=== PATIENT | male | born 1985 | race Caucasian/White ===

== ENCOUNTER 2023-01-23 08:00 | Outpatient (CLI) | payer OTHER ==
--- NOTE | 2023-01-24 11:13 | XRAY Report ---
PROCEDURE: Finger(s) LT INDICATIONS: LEFT PINKY FINGER INJURY TECHNIQUE: AP hand, 2 views of the fifth finger(s) acquired. COMPARISON: None. FINDINGS: Bones: No fractures or dislocations. No suspicious bony lesions. Fifth DIP held in flexion Soft tissues: No suspicious soft tissue calcifications or masses. IMPRESSION: No acute bony abnormality. Reviewed by: Horace Olmos MD on 01/24/2023 10:12 AM CATERINA Approved by: Horace Olmos MD on 01/24/2023 10:12 AM AKSANTOS Station ID: [id number]
== END 2023-01-23 23:59 | disposition home or self-care (01) ==
LOC: DI.S 08:00
PROVIDERS: ATTEND Registered Nurse
DX: S66.397A Other injury of extensor muscle, fascia and tendon of left little finger at wrist and hand level, initial encounter (principal)

== ENCOUNTER 2023-06-02 19:13 | Outpatient (CLI) | payer OTHER | END 2023-06-02 19:14 | disposition critical access hospital (66) | LOC: EMS 19:13 | DX: R40.20 Unspecified coma (principal); R06.81 Apnea, not elsewhere classified; R06.89 Other abnormalities of breathing; F10.90 Alcohol use, unspecified, uncomplicated | CPT/HCPCS: A0425; A0427 ==

== ENCOUNTER 2023-06-02 20:00 | Inpatient (IN) | payer OTHER ==
[2023-06-02] MEDS ORDERED: PROPOFOL 1000 MG/100 ML 1,000 MG/100 ML BOTTLE IV STA (20:01)
[2023-06-02] MEDS ORDERED: VECURONIUM 10 MG VIAL IVP STA (20:01)
[2023-06-02] MEDS ORDERED: SODIUM CHLORIDE 0.9% 1,000 ML IV STA ×3 (20:01→20:02)
--- NOTE | 2023-06-02 20:07 | ED Physician Documentation ---
History of Present Illness - Stated complaint Stated Complaint: AMS/UNCONSCIOUS - History obtained from History obtained from: Patient - History of Present Illness Pain level max: 0 Pain level now: 0 - Additonal information Additional information: Patient is a 37-year-old male with a longstanding history of alcoholism. He was admitted at the end of February for alcohol use with respiratory arrest. Today his parents state that the found him drinking heavily, he went unresponsive with EMS and stopped breathing again. He was intubated with EMS. Brought in to the emergency department. He has received Versed from EMS as well as fentanyl. The patient was intubated for 24 hours on his last admission. He was discharged to an alcohol rehab facility. Reportedly has been clean for 28 days. No other drug use is known. Reportedly patient is on no medications. Patient unable to give any history. All history from EMS. Review of Systems Unable to obtain: Intubated PD PAST MEDICAL HISTORY - Past Medical History Past Medical History: No - Past Surgical History Past Surgical History: No - Present Medications Home Medications: Ambulatory Orders Medication Instructions Recorded Confirmed Magnesium Oxide [Mag Ox] 400 mg PO DAILYWM 14 Days #14 tab 03/29/23 Thiamine [Vitamin B-1] 100 mg PO DAILY 30 Days #30 tab 03/29/23 chlordiazePOXIDE [Librium] 10 mg PO BID #6 cap 03/29/23 - Allergies Allergies/Adverse Reactions: Allergies Allergy/AdvReac Type Severity Reaction Status Date / Time No Known Drug Allergies Allergy Verified 06/02/23 20:52 - Social History Smoking Status: Former smoker PD ED PE NORMAL - Vitals Vital signs reviewed: Yes - General General: Other (intubated, unresponsive) - HEENT HEENT: PERRL, Moist mucous membranes - Neck Neck: Supple, no meningeal sign - Cardiac Cardiac: RRR, Strong equal pulses - Respiratory Respiratory: No respiratory distress, Clear bilaterally - Abdomen Abdomen: Soft, Non distended - Derm Derm: Warm and dry - Extremities Extremities: No edema - Neuro Neuro: Other (intubated) Results - Vitals Vitals: Vital Signs - 24 hr 06/02/23 06/02/23 06/02/23 20:00 20:18 20:20 Temperature 35.3 C L 36 C L Heart Rate 75 79 75 Respiratory 14 11 L Rate Blood Pressure 133/101 H 120/94 H O2 Saturation 100 100 06/02/23 06/02/23 06/02/23 20:48 21:00 21:15 Temperature 36.1 C L 36.1 C L 36 C L Heart Rate 106 H 80 79 Respiratory 18 20 24 Rate Blood Pressure 122/85 H 116/81 H 107/78 O2 Saturation 100 100 100 Oxygen O2 Source Mechanical ventilator - Labs Labs: Laboratory Tests 06/02/23 06/02/23 06/02/23 20:00 20:06 20:06 WBC 7.7 RBC 5.13 Hgb 15.1 Hct 46.9 MCV 91.4 MCH 29.4 MCHC 32.2 RDW 13.2 Plt Count 232 MPV 8.4 Neut # (Auto) 3.1 Lymph # (Auto) 3.3 Hunt # (Auto) 0.5 Eos # (Auto) 0.7 Baso # (Auto) 0.1 Absolute Nucleated RBC 0.00 Nucleated RBC % 0.0 Bld Gas Analysis Time Sample Site ABG pH ABG pCO2 ABG pO2 ABG HCO3 ABG Total CO2 ABG O2 Saturation ABG Base Excess Tristan Test Respiration Rate O2 Delivery Device Vent Mode Tidal Volume PEEP Sodium 139 Potassium 3.8 Chloride 103 Carbon Dioxide 29 Anion Gap 7.0 BUN 11 Creatinine 0.9 Estimated GFR (MDRD) 95 Glucose 104 Calcium 9.3 Magnesium 2.1 Total Bilirubin 0.3 AST 25 ALT 17 Alkaline Phosphatase 60 Total Protein 7.1 Albumin 4.5 Globulin 2.6 Albumin/Globulin Ratio 1.7 Lipase 57 TSH 3.96 Urine Color STRAW Urine Clarity CLEAR Urine pH 6.0 Ur Specific [place] <=1.005 Urine Protein NEGATIVE Urine Glucose (UA) NEGATIVE Urine Ketones NEGATIVE Urine Occult Blood NEGATIVE Urine Nitrite NEGATIVE Urine Bilirubin NEGATIVE Urine Urobilinogen 0.2 (NORMAL) Ur Leukocyte Esterase NEGATIVE Ur Microscopic Review NOT INDICATED Urine Culture Comments NOT INDICATED Salicylates < 1.5 Urine Opiates Screen NEGATIVE Ur Oxycodone Screen NEGATIVE Urine Methadone Screen NEGATIVE Ur Propoxyphene Screen NEGATIVE Acetaminophen < 0.1 Ur Barbiturates Screen NEGATIVE Ur Tricyclics Screen NEGATIVE Ur Phencyclidine Scrn NEGATIVE Ur Amphetamine Screen NEGATIVE U Methamphetamines Scrn NEGATIVE U Benzodiazepines Scrn NEGATIVE Urine Cocaine Screen NEGATIVE U Cannabinoids Screen NEGATIVE Ethyl Alcohol 484.8 06/02/23 20:20 WBC RBC Hgb Hct MCV MCH MCHC RDW Plt Count MPV Neut # (Auto) Lymph # (Auto) Hunt # (Auto) Eos # (Auto) Baso # (Auto) Absolute Nucleated RBC Nucleated RBC % Bld Gas Analysis Time 2030 Sample Site LEFT RADIAL ABG pH 7.29 L ABG pCO2 51 H ABG pO2 227 H* ABG HCO3 23.7 ABG Total CO2 25.2 ABG O2 Saturation 99 H ABG Base Excess -3.4 L Tristan Test POSITIVE Respiration Rate 16 O2 Delivery Device VENTILATOR Vent Mode ASSIST/CONTROL Tidal Volume 500 PEEP 5 Sodium Potassium Chloride Carbon Dioxide Anion Gap BUN Creatinine Estimated GFR (MDRD) Glucose Calcium Magnesium Total Bilirubin AST ALT Alkaline Phosphatase Total Protein Albumin Globulin Albumin/Globulin Ratio Lipase TSH Urine Color Urine Clarity Urine pH Ur Specific [place] Urine Protein Urine Glucose (UA) Urine Ketones Urine Occult Blood Urine Nitrite Urine Bilirubin Urine Urobilinogen Ur Leukocyte Esterase Ur Microscopic Review Urine Culture Comments Salicylates Urine Opiates Screen Ur Oxycodone Screen Urine Methadone Screen Ur Propoxyphene Screen Acetaminophen Ur Barbiturates Screen Ur Tricyclics Screen Ur Phencyclidine Scrn Ur Amphetamine Screen U Methamphetamines Scrn U Benzodiazepines Scrn Urine Cocaine Screen U Cannabinoids Screen Ethyl Alcohol - Rads (name of study) cxr Relevant Findings:: Final report received, See rad report PD Medical Decision Making - ED course Complexity details: reviewed results, re-evaluated patient, considered differential, d/w coding consultant ED course: 37-year-old male with a history of alcoholism and respiratory failure apparently was drinking heavily tonight, became unconscious and had respiratory failure. Was intubated with EMS. Patient was placed on a propofol drip here. We will admit the patient to the ICU for further care. Patient is hemodynamically stable. A Khan catheter was placed. A enteric tube was placed. Similar presentation to when he was admitted back at the end of February. Discussed the case with the hospitalist, who accepts. This document was made in part using voice recognition software. While efforts are made to proofread this document, sound alike and grammatical errors may occur. IMPRESSION: No acute radiographic abnormality on this single view radiograph. ET tube terminates in the mid trachea. Consider advancement of the enteric tube (side port is at the gastroesophageal junction) - Critical Care Time(min): 35 Time Includes: See progress note Data interpretation: See progress note Procedures included in critical care time: See progress note Procedures excluded from critical care time: See progress note Departure - Departure Disposition: 66 [facility] DC/Xfer Clinical Impression: Respiratory failure Qualifiers: Chronicity: acute Respiratory failure complication: unspecified whether with hypoxia or hypercapnia Qualified Code(s): J96.00 - Acute respiratory failure, unspecified whether with hypoxia or hypercapnia Alcohol intoxication Qualifiers: Complication of substance-induced condition: uncomplicated Qualified Code(s): F10.920 - Alcohol use, unspecified with intoxication, uncomplicated Condition: Stable Discharge Date/Time: 06/02/23 22:05
[2023-06-02 20:12] LABS: MUDS CUTOFF CONCENTRATIONS CUTOFF CONC BELOW:
[2023-06-02 20:12] LABS: BASOPHILS # (AUTO) 0.1 10^3/uL (0.0-0.1); BASOPHILS % (AUTO) 0.9 %; EOSINOPHILS # (AUTO) 0.7 10^3/uL (0.0-0.7); EOSINOPHILS % (AUTO) 9.4 %; HCT - HEMATOCRIT 46.9 % (42.0-52.0); HGB - HEMOGLOBIN 15.1 g/dL (14.0-18.0); LYMPHOCYTES # (AUTO) 3.3 10^3/uL (1.5-3.5); LYMPHOCYTES % (AUTO) 42.4 %; MEAN CORPUSCULAR HEMOGLOBIN 29.4 pg (27.0-31.0); MEAN CORPUSCULAR HGB CONC 32.2 g/dL (32.0-36.0); MEAN CORPUSCULAR VOLUME 91.4 fL (80.0-94.0); MEAN PLATELET VOLUME 8.4 fL (7.4-11.4); MONOCYTES # (AUTO) 0.5 10^3/uL (0.0-1.0); NEUTROPHILS # (AUTO) 3.1 10^3/uL (1.5-6.6); PLT - PLATELET COUNT 232 10^3/uL (130-450); RED BLOOD COUNT 5.13 10^6/uL (4.70-6.10); RED CELL DISTRIBUTION WIDTH 13.2 % (12.0-15.0); WHITE BLOOD COUNT 7.7 x10^3/uL (4.8-10.8)
[2023-06-02 20:13] LABS: BILIRUBIN,URINE NEGATIVE (NEGATIVE); GLUCOSE, URINE (UA) NEGATIVE (NEGATIVE); KETONES,URINE (UA) NEGATIVE (NEGATIVE); LEUKOCYTE ESTERASE, URINE NEGATIVE (NEGATIVE); NITRITE,URINE NEGATIVE (NEGATIVE); OCCULT BLOOD,URINE NEGATIVE (NEGATIVE); PROTEIN,URINE NEGATIVE (NEGATIVE); UROBILINOGEN,URINE 0.2 (NORMAL) E.U./dL (NORMAL)
[2023-06-02 20:16] LABS: CLARITY,URINE CLEAR (CLEAR)
--- NOTE | 2023-06-02 20:24 | XRAY Report ---
PROCEDURE: Chest 1 View X-Ray INDICATIONS: s/p intubation TECHNIQUE: One view of the chest was acquired. COMPARISON: None. FINDINGS: Surgical changes and devices: ET tube terminates in the mid trachea. Enteric tube terminates below t he diaphragm, with side-port at the gastroesophageal junction, consider further advancement. Lungs and pleura: No dense consolidation. No pleural effusion. Mediastinum: Normal heart size Bones and chest wall: No suspicious bony lesions. Overlying soft tissues appear unremarkable. IMPRESSION: No acute radiographic abnormality on this single view radiograph. ET tube terminates in the mid trachea. Consider advancement of the enteric tube (side port is at the gastroesophageal junction) Reviewed by: Seymour Metcalf MD on 06/02/2023 8:22 PM PST Approved by: Seymour Metcalf MD on 06/02/2023 8:22 PM PST Station ID: [id number]
[2023-06-02 20:26] LABS: AMPHETAMINE SCREEN,URINE NEGATIVE (NEGATIVE); BARBITURATE SCREEN,UR NEGATIVE (NEGATIVE); BENZODIAZEPINES SCREEN, URINE NEGATIVE (NEGATIVE); COCAINE SCREEN URINE NEGATIVE (NEGATIVE); METHADONE SCREEN, URINE NEGATIVE (NEGATIVE); METHAMPHETAMINES SCREEN, URINE NEGATIVE (NEGATIVE); OPIATE SCREEN, URINE NEGATIVE (NEGATIVE); OXYCODONE SCREEN, URINE NEGATIVE (NEGATIVE); PROPOXYPHENE SCREEN, URINE NEGATIVE (NEGATIVE); THC CANNABINOID SCREEN, URINE NEGATIVE (NEGATIVE); TRICYCLIC ANTIDEPRESSANT,URINE NEGATIVE (NEGATIVE)
[2023-06-02 20:28] LABS: ALBUMIN 4.5 g/dL (3.2-5.5); ALBUMIN/GLOBULIN RATIO 1.7 (1.0-2.2); ALKALINE PHOSPHATASE 60 IU/L (42-121); ALT ALANINE AMINOTRANSFERASE 17 IU/L (10-60); AST ASPARTATE AMINOTRANSFERASE 25 IU/L (10-42); BILIRUBIN,TOTAL 0.3 mg/dL (0.2-1.0); BUN - BLOOD UREA NITROGEN 11 mg/dL (6-20); CALCIUM 9.3 mg/dL (8.5-10.3); CARBON DIOXIDE - CO2 29 mmol/L (21-32); CHLORIDE 103 mmol/L (101-111); CREATININE 0.9 mg/dL (0.6-1.3); ETOH - ETHANOL 484.8 mg/dL; GFR - MDRD 95 (>89); GLUCOSE 104 mg/dL (74-104); LIPASE 57 U/L (11-82); MAGNESIUM 2.1 mg/dL (1.7-2.3); POTASSIUM 3.8 mmol/L (3.5-4.5); SODIUM 139 mmol/L (135-145); TOTAL PROTEIN 7.1 g/dL (6.4-8.9)
[2023-06-02 20:29] LABS: ACETAMINOPHEN < 0.1 ug/mL; SALICYLATE < 1.5 mg/dL
[2023-06-02 20:34] LABS: ABG PCO2 51 mmHg (34-45); ABG PH 7.29 (7.35-7.45)
[2023-06-02 20:35] LABS: ABG BASE EXCESS -3.4 mmol/L (-2.0-3.0); ABG HCO3 23.7 mmol/L (22.0-26.0); ABG MODE OF VENTILATION ASSIST/CONTROL; ABG OXYGEN SATURATION 99 % (94-98); ABG RESPIRATORY RATE 16 b/min; ABG TCO2 25.2 MMOL/L (21.0-29.0); ALLEN TEST POSITIVE
[2023-06-02 20:36] LABS: ABG PO2 227 mmHg (80-100)
[2023-06-02 20:42] LABS: THYROID STIMULATING HORMONE 3.96 uIU/mL (0.34-5.60)
[2023-06-02] MEDS ORDERED: ONDANSETRON 4 MG/2 ML VIAL IVP PRN (21:17)
[2023-06-02] MEDS ORDERED: SODIUM CHLORIDE FLUSH 0.9% 10 ML SYRINGE IVP PRN (21:17)
[2023-06-02] MEDS ORDERED: LORazepam 2 MG/ML VIAL IVP PRN (21:21)
--- NOTE | 2023-06-02 21:27 | HISTORY & PHYSICAL EXAMINATION ---
Chief Complaint - Chief Complaint Chief Complaint: AMS History of Present Illness - History of Present Illness HPI Comment/Other: Patient is a 37-year-old male with a longstanding history of alcoholism. He was admitted at the end of February for alcohol use with respiratory arrest. Today his parents state that the found him drinking heavily, he went unresponsive with EMS and stopped breathing again. He was intubated with EMS. Brought in to the emergency department. He has received Versed from EMS as well as fentanyl. The patient was intubated for 24 hours on his last admission. He was discharged to an alcohol rehab facility. Reportedly has been clean for 28 days. No other drug use is known. Reportedly patient is on no medications. Pt is on ventilator and propofol Labs showed alcohol level > 400 Pt is admitted due to acute respiratory failure and alcohol intoxication Meds/Allgy - Home Medications Home Medications: Ambulatory Orders Medication Instructions Recorded Confirmed Magnesium Oxide [Mag Ox] 400 mg PO DAILYWM 14 Days #14 tab 03/29/23 Thiamine [Vitamin B-1] 100 mg PO DAILY 30 Days #30 tab 03/29/23 chlordiazePOXIDE [Librium] 10 mg PO BID #6 cap 03/29/23 - Allergies Allergies/Adverse Reactions: Allergies Allergy/AdvReac Type Severity Reaction Status Date / Time No Known Drug Allergies Allergy Verified 06/02/23 20:52 Review of Systems - Other Findings Other Findings: Unable to obtain as patient is sedated, on ventilator Exam - Vital Signs Vital Signs: Vital Signs x48h Temp Pulse Resp BP Pulse Ox 06/02/23 21:15 36 C L 79 24 107/78 100 06/02/23 21:00 36.1 C L 80 20 116/81 H 100 06/02/23 20:48 36.1 C L 106 H 18 122/85 H 100 06/02/23 20:20 75 06/02/23 20:18 36 C L 79 11 L 120/94 H 100 06/02/23 20:00 35.3 C L 75 14 133/101 H 100 - Physical Exam General Appearance: positive: Other (on ventilator) Respiratory: positive: Breath sounds nml Cardiovascular: positive: Regular rate & rhythm Abdomen: positive: Nml bowel sounds Skin: positive: No rash Extremities: positive: No pedal edema Neurologic/Psychiatric: positive: Other (SEDATED) Conclusion/Plan - Lab Results Fish Bones: 06/02/23 20:06 06/02/23 20:06 - Other Other Results/Comments: A: Acute hypoxic respiratory failure Alcohol intoxication AMS Acute Encephalopthy Plan; Admit in ICU Pt is on ventilator cont propofol Start alcohol withdrawl protocol Ativan iv prn start thiamine 100 iv daily Folic acid 1 mg iv daily Supportive care DVT prophylaxic: SCD GI prophy : Pepcid iv Full code Pt is admitted inpatient as more than 2 midnight stay is expected
[2023-06-03] MEDS: PROPOFOL 1000 MG/100 ML 1,000 MG/100 ML BOTTLE IV SCH ×2 (02:51→08:22)
--- NOTE | 2023-06-03 03:50 | PROVIDER PROGRESS NOTE ---
Net Developer Consultant Note - Net Developer Consultant Note Net Developer Consultant Note: RN paged to request BUE wrist restraint for patient sedated and intubated in the ICU. patient attempting to remove ET tube and as risk of self harm. verbal redirection failed. Patient seen. agree with RN that restraints is for patient safety. BUE wrist restraints x 12 hour - day team to renew during day time if restraint is seem necessary Marium Menjivar DO Internal Medicine Sound
[2023-06-03] MEDS ORDERED: fentaNYL 2,500 MCG in SODIUM CHLORIDE 0.9% 200 ML IV SCH (04:00)
[2023-06-03] MEDS: SODIUM CHLORIDE 0.9% 1,000 ML IV SCH ×4 (04:22→22:51)
[2023-06-03] MEDS: SODIUM CHLORIDE FLUSH 0.9% 10 ML SYRINGE IVP SCH ×4 (04:22→23:39)
[2023-06-03 04:51] LABS: BASOPHILS % (AUTO) 0.5 %; EOSINOPHILS # (AUTO) 0.5 10^3/uL (0.0-0.7); EOSINOPHILS % (AUTO) 6.2 %; HCT - HEMATOCRIT 41.5 % (42.0-52.0); HGB - HEMOGLOBIN 13.3 g/dL (14.0-18.0); LYMPHOCYTES # (AUTO) 3.3 10^3/uL (1.5-3.5); LYMPHOCYTES % (AUTO) 45.3 %; MEAN CORPUSCULAR HEMOGLOBIN 29.4 pg (27.0-31.0); MEAN CORPUSCULAR VOLUME 91.6 fL (80.0-94.0); MEAN PLATELET VOLUME 8.7 fL (7.4-11.4); MONOCYTES # (AUTO) 0.3 10^3/uL (0.0-1.0); MONOCYTES % (AUTO) 3.7 %; NEUTROPHILS # (AUTO) 3.3 10^3/uL (1.5-6.6); PLT - PLATELET COUNT 205 10^3/uL (130-450); RED BLOOD COUNT 4.53 10^6/uL (4.70-6.10); RED CELL DISTRIBUTION WIDTH 13.4 % (12.0-15.0); WHITE BLOOD COUNT 7.4 x10^3/uL (4.8-10.8)
[2023-06-03 04:55] LABS: CALCIUM, IONIZED 1.05 mmol/L (1.15-1.33); VBG PH 7.447 (7.31-7.41)
[2023-06-03 05:08] LABS: CALCIUM 8.6 mg/dL (8.5-10.3); CREATININE 0.8 mg/dL (0.6-1.3); MAGNESIUM 1.8 mg/dL (1.7-2.3); PHOSPHORUS 3.8 mg/dL (2.5-5.0); POTASSIUM 3.8 mmol/L (3.5-4.5)
[2023-06-03] MEDS ORDERED: CALCIUM GLUC 1,000MG/50ML-NACL 1,000 MG/50 ML BAG IV ONE (05:11)
[2023-06-03] MEDS ORDERED: MAGNESIUM SULFATE 2 GRAM 2 GM/50 ML BAG IV ONE ×2 (05:11→19:01)
[2023-06-03] MEDS: POTASSIUM CHLOR 10 MEQ/100 ML 10 MEQ/100 ML BAG IV SCH ×2 (05:35→06:36)
[2023-06-03 08:17] LABS: ABG BASE EXCESS 1.4 mmol/L (-2.0-3.0); ABG HCO3 25.3 mmol/L (22.0-26.0); ABG OXYGEN SATURATION 98 % (94-98); ABG PCO2 38 mmHg (34-45); ABG PH 7.45 (7.35-7.45); ABG PO2 115 mmHg (80-100); ABG TCO2 26.4 MMOL/L (21.0-29.0); ALLEN TEST POSITIVE
[2023-06-03 08:18] LABS: ABG MODE OF VENTILATION ASSIST/CONTROL; ABG RESPIRATORY RATE 14 b/min
[2023-06-03] MEDS ORDERED: SODIUM CHLORIDE 0.9% 1,000 ML ONE (08:33)
[2023-06-03] MEDS: FAMOTIDINE 20 MG/2 ML VIAL IVP SCH ×2 (08:42→20:58)
[2023-06-03] MEDS ORDERED: FOLIC ACID INJ 1 MG in SODIUM CHLORIDE 0.9% 1,000 ML IV SCH (09:00)
[2023-06-03] MEDS ORDERED: THIAMINE INJ 100 MG in SODIUM CHLORIDE 0.9% 50 ML IV SCH (09:00)
[2023-06-03] MEDS ORDERED: FOLIC ACID INJ 1 MG, THIAMINE INJ 100 MG in SODIUM CHLORIDE 0.9% 1,000 ML IV SCH (09:11)
[2023-06-03 10:20] LABS: CALCIUM, IONIZED 1.14 mmol/L (1.15-1.33); VBG PH 7.428 (7.31-7.41)
[2023-06-03 10:27] LABS: MAGNESIUM 2.1 mg/dL (1.7-2.3); POTASSIUM 4.2 mmol/L (3.5-4.5)
[2023-06-03] MEDS ORDERED: LORazepam 2 MG/ML VIAL IVP PRN (10:35)
[2023-06-03] MEDS ORDERED: THIAMINE 100 MG TABLET PO SCH (11:00)
[2023-06-03] MEDS ORDERED: chlordiazePOXIDE 25 MG CAPSULE PO SCH (12:00)
--- NOTE | 2023-06-03 14:02 | PROVIDER PROGRESS NOTE ---
Progress Note June 03, 2023 1:55 PM This morning the patient was intubated. On propofol 40 and fentanyl 1. Even with that he was awake, eyes open, and completely appropriate with regards to answering my questions. Because he had the ET tube in his mouth, he really was not able to verbalize. But I would ask him questions that he could answer yes no and he used his hands to say yes or no. Sometimes he would gesticulate by shrugging his shoulders and rolling his eyes when the question bothered him. I explained to him that he was intubated because of the profound obtundation with the alcohol intake, and that I was afraid about him going through withdrawal. I asked if he wanted me to keep the tube in place to make him more comfortable to withdrawal and I could put him to sleep or that he wanted out. He said he wanted it out. Blood gas before extubation had a pH of 7.45, pCO2 38, pO2 115, bicarb 25. Base excess 1.4. He was in a total volume of 500, FiO2 30%, PEEP of 5. No pressure support. Rate set at 14. As such, respiratory therapy evaluated the patient and sedation was stopped. Neph was good. Blood pressure was good. Oxygenation on low FiO2 was normal. No tachycardia, no anxiety and he was rapidly extubated. He would like to resume his home medications escitalopram and trazodone. He also says that he takes at home medication of a nicotine medication. He would like to resume that. Exam: Temperature is 37, heart rate 75, blood pressure 106/75, respirations 12. 97% saturated 1 L nasal cannula. Slender young male who looks younger than stated age. No acute distress. Hoarse voice. Cough productive of some phlegm. But no respiratory distress. Neck has shotty adenopathy Coarse upper airway rhonchi sounds that clear with a good cough. And slowly return but are not making him have any respiratory distress. A regular rate and rhythm without tachycardia Abdomen that is soft, nontender, normal bowel sounds Extremities without any edema, and skin is dry, warm Neurologically oriented to person, place, time, situation. No focal deficits. Lab: BMP is normal. So is calcium, magnesium, and phosphorus. CBC has a normal white cell count at 7.4. Hemoglobin slightly low at 13.3. He was admitted at 15. Hematocrit 41.5. He was admitted to . Platelets 205. Assessment/plan 1. Acute hypoxic respiratory failure due to problem #2. Parameters were good for extubation today. He has been extubated for several hours now and doing well. Still has residual hoarseness, occasional phlegmy rhonchi but oxygenation is stable at 97% O2 sat with 1 L nasal cannula. Plan: Incentive spirometry, Mucinex Resume a regular diet Monitor for signs and symptoms of worsening respiratory status Monitor for signs and symptoms of alcohol withdrawal 2. Acute alcohol intoxication. Alcohol level was 484 on admission. That was at 8 PM last night. Plan: Social work to make contact to see if other opportunities can be presented to him. From his last admission to today, he has been in inpatient alcohol rehab facility. Is my understanding he began drinking shortly thereafter after being discharged from the facility. I will switch IV thiamine and folic acid to p.o. thiamine and a vitamin. Start Librium 10 mg p.o. 3 times daily. Ativan 1 mg every 2 hours as needed. 3. Acute metabolic encephalopathy seems to have resolved. Attributed to alcohol intoxication and respiratory failure. He was intubated more to protect his airway. He is currently alert, oriented to person, place, situation. No tremors, diaphoresis. 4. Nicotine withdrawal I do not recognize the product he wants me to resume. I am asking him to bring in the box, presented to pharmacy. Pharmacy needs to verify and then I can resume and form. 5. Depression. I am resuming his citalopram at 10 mg daily and trazodone 50 mg at at bedtime
--- NOTE | 2023-06-03 14:07 | PHARMACY PROGRESS NOTE ---
- Best Possible Medication History Admit Date and Time: 06/02/232116 Processed by: Pharmacy Medication History completed: Yes Patient Interview: Completed Secondary Source(s): Pharmacy records, Insurance records PATIENT UNSURE OF DOSES AND FREQUENCIES OF MEDICATIONS, LEXAPRO FROM INSURANCE ALTHOUGH NO RECORD OF TRAZODONE BEING PRESCRIBED SO DOSE AND FREQUENCY ARE FROM PATIENTS MEMORY. As the person ultimately responsible for medication therapy, providers are able to order a medication from an existing home medication list in [facility] via the "Reconcile Routine" prior to Confirmation of that medication by academic support assistant. Such practice is discouraged except when the physician, in their clinical judgment, deems that a medical need exists for a medication without regard to previous use.
[2023-06-03] MEDS: PRENATAL VITAMIN TABLET PO SCH (14:41)
[2023-06-03] MEDS ORDERED: ESCITALOPRAM 10 MG TABLET PO ONE (15:00)
[2023-06-03] MEDS: [UNRECOGNIZED DRUG - OTHER] PO PRN ×2 (17:08→20:14)
[2023-06-03] MEDS ORDERED: BENZOCAINE/MENTHOL LOZENGE MM ONE ×2 (17:25→17:28)
[2023-06-03] MEDS: BENZOCAINE/MENTHOL LOZENGE MM PRN (17:26)
[2023-06-03] MEDS: chlordiazePOXIDE 5 MG CAPSULE PO SCH ×2 (17:53→23:39)
[2023-06-03 18:56] LABS: BUN - BLOOD UREA NITROGEN 10 mg/dL (6-20); CALCIUM 9.3 mg/dL (8.5-10.3); CARBON DIOXIDE - CO2 27 mmol/L (21-32); CHLORIDE 104 mmol/L (101-111); CREATININE 0.8 mg/dL (0.6-1.3); GFR - MDRD 109 (>89); GLUCOSE 92 mg/dL (74-104); IONIZED CALCIUM IF INDICATED NO; MAGNESIUM 1.6 mg/dL (1.7-2.3); PHOSPHORUS 4.7 mg/dL (2.5-5.0); POTASSIUM 4.2 mmol/L (3.5-4.5); SODIUM 138 mmol/L (135-145)
[2023-06-03] MEDS: METOPROLOL TARTRATE 25 MG TABLET PO SCH (20:57)
[2023-06-03] MEDS ORDERED: traZODone 50 MG TABLET PO SCH (21:00)
[2023-06-03 23:48] VITALS: O2SAT 97
[2023-06-04] MEDS: chlordiazePOXIDE 5 MG CAPSULE PO SCH ×2 (05:12→12:17)
[2023-06-04 05:45] LABS: BASOPHILS % (AUTO) 0.5 %; CALCIUM, IONIZED 1.13 mmol/L (1.15-1.33); EOSINOPHILS # (AUTO) 0.3 10^3/uL (0.0-0.7); EOSINOPHILS % (AUTO) 3.6 %; HCT - HEMATOCRIT 40.8 % (42.0-52.0); LYMPHOCYTES # (AUTO) 2.6 10^3/uL (1.5-3.5); LYMPHOCYTES % (AUTO) 30.4 %; MEAN CORPUSCULAR HEMOGLOBIN 29.3 pg (27.0-31.0); MEAN CORPUSCULAR HGB CONC 31.9 g/dL (32.0-36.0); MEAN CORPUSCULAR VOLUME 92.1 fL (80.0-94.0); MEAN PLATELET VOLUME 8.8 fL (7.4-11.4); MONOCYTES # (AUTO) 0.7 10^3/uL (0.0-1.0); NEUTROPHILS # (AUTO) 4.9 10^3/uL (1.5-6.6); NEUTROPHILS % (AUTO) 57.3 %; PLT - PLATELET COUNT 186 10^3/uL (130-450); RED BLOOD COUNT 4.43 10^6/uL (4.70-6.10); RED CELL DISTRIBUTION WIDTH 13.3 % (12.0-15.0); VBG PH 7.443 (7.31-7.41); WHITE BLOOD COUNT 8.5 x10^3/uL (4.8-10.8)
[2023-06-04 05:58] LABS: ALBUMIN 3.8 g/dL (3.2-5.5); ALBUMIN/GLOBULIN RATIO 1.8 (1.0-2.2); ALKALINE PHOSPHATASE 53 IU/L (42-121); ALT ALANINE AMINOTRANSFERASE 12 IU/L (10-60); AST ASPARTATE AMINOTRANSFERASE 15 IU/L (10-42); BILIRUBIN,TOTAL 1.2 mg/dL (0.2-1.0); BUN - BLOOD UREA NITROGEN 11 mg/dL (6-20); CARBON DIOXIDE - CO2 28 mmol/L (21-32); CHLORIDE 102 mmol/L (101-111); CREATININE 0.8 mg/dL (0.6-1.3); ETOH - ETHANOL < 10.0 mg/dL; GFR - MDRD 109 (>89); GLUCOSE 97 mg/dL (74-104); PHOSPHORUS 4.4 mg/dL (2.5-5.0); POTASSIUM 3.9 mmol/L (3.5-4.5); SODIUM 136 mmol/L (135-145); TOTAL PROTEIN 5.9 g/dL (6.4-8.9)
[2023-06-04 08:10] VITALS: BP 113/72
[2023-06-04] MEDS: SODIUM CHLORIDE 0.9% 1,000 ML IV SCH (08:54)
[2023-06-04] MEDS: PRENATAL VITAMIN TABLET PO SCH (08:55)
[2023-06-04] MEDS: METOPROLOL TARTRATE 25 MG TABLET PO SCH (08:56)
[2023-06-04] MEDS: FAMOTIDINE 20 MG/2 ML VIAL IVP SCH (08:56)
[2023-06-04] MEDS: SODIUM CHLORIDE FLUSH 0.9% 10 ML SYRINGE IVP SCH (08:59)
[2023-06-04] MEDS ORDERED: ESCITALOPRAM 10 MG TABLET PO SCH (09:00)
[2023-06-04] MEDS ORDERED: THIAMINE 100 MG TABLET PO SCH (09:00)
[2023-06-04] MEDS: BENZOCAINE/MENTHOL LOZENGE MM PRN (09:09)
[2023-06-04] MEDS: [UNRECOGNIZED DRUG - OTHER] PO PRN (09:16)
--- NOTE | 2023-06-04 11:22 | Discharge Plan ---
Discharge Plan Problem Reviewed?: Yes Disposition: 01 Home, Self Care Condition: Stable Diet: Regular Activity Restrictions: Activity as Tolerated Shower Restrictions: No Driving Restrictions: No Health Concerns: You presented to our emergency room unconscious and barely breathing because of acute alcohol intoxication. This is the second time you have done that with our institution. Between the last time and now you were in an inpatient rehab program. You were drinking within 3 days after discharge. Because you are barely breathing you were emergently intubated. A breathing tube was placed in your throat and we breathe for you overnight. The next day you were awake, alert, and alcohol level was less than 10. You were successfully extubated and has been breathing well on your own. Social work has spoken to you and offered you more opportunities for treatment and you are declining them at this time. Plan of Treatment: We would strongly encourage you to enter some type of program that would help you stop drinking. Whether it is AA, inpatient rehab, outpatient rehab, one-to-one mental health counseling, or any the other opportunity. Care Goals: To stop drinking Assessment: Patient is alert, oriented to person place and time. No signs or symptoms of withdrawal No Smoking: If you smoke, Please STOP! Call for help.
--- NOTE | 2023-06-04 11:23 | DISCHARGE SUMMARY ---
Discharge Summary Admit Date: 06/02/23 Discharge Date: 06/04/23 Discharging Provider: Christie Aquino MD Condition at Discharge: Stable Discharge Disposition: 01 Home, Self Care - DIAGNOSES Discharge Diagnoses with Status of Each Condition: 1 Acute hypoxic rspiratory failure due to problem #2 2. Acute alcohol intoxication 3. Acute metabolic encephalopathy #4 nicotine withdrawal 5. Depression - HPI History of Present Illness: Patient is a 37-year-old male with a longstanding history of alcoholism. He was admitted at the end of February for alcohol use with respiratory arrest. From here he was transferred to [facility] . He has been discharged. Today his parents state that the found him drinking heavily, he went unresponsive with EMS and stopped breathing again. He was intubated with EMS. Brought in to the emergency department. He has received Versed from EMS as well as fentanyl. The patient was intubated for 24 hours on his last admission. He was discharged to an alcohol rehab facility. Reportedly has been clean for 28 days. No other drug use is known. Reportedly patient is on no medications. Pt is on ventilator and propofol Labs showed alcohol level > 400 Pt is admitted due to acute respiratory failure and alcohol intoxication - HOSPITAL COURSE Hospital Course: He was extubated due to severe metabolic encephalopathy and hypercapnia due to alcohol intoxication. He was extubated June 04. Had residual hoarseness, occasional phlegmy cough but oxygenation was stable. His regular diet was resumed. He was monitored for signs and symptoms of alcohol withdrawal. He was with an alcohol level of 494 on admission and less than 10 by discharge. He was started on thiamine and folate IV and then transition to p.o. Nicotine withdrawal was treated with a medication he brought in from home and pharmacy verified. His citalopram and trazodone resumed for his depression. Social work spoke to him about opportunities for rehab. He declined them. Stated that he probably was not going to ever go to rehab again. He also stated that he did not want us to discuss his case with his parents. He was discharged in stable condition. He had eaten 100% of his food. Temperature was 37.1. Heart rate 69. Blood pressure 113/72. Respirations 16. 97% on room air. Alert, oriented to person place and time and situation. No tremors no tachycardia no diaphoresis. Lungs were clear. Regular rate and rhythm. Benign abdomen. Ambulating without any ataxia or being off balance. Greater than 30 minutes was spent coordinating discharge - ALLERGIES Allergies/Adverse Reactions: Allergies Allergy/AdvReac Type Severity Reaction Status Date / Time No Known Drug Allergies Allergy Verified 06/02/23 20:52 - MEDICATIONS Home Medications: Ambulatory Orders Medication Instructions Recorded Confirmed Escitalopram [Lexapro] 10 mg PO DAILY 06/03/23 06/03/23 Nicotine Polacrilex [Nicotine 6 mg BC Q1H 06/03/23 06/03/23 Lozenge] traZODone [Desyrel] 50 mg PO DAILY 06/03/23 06/03/23 - LABS Result Diagrams: 06/04/23 05:10 06/04/23 05:10
[2023-06-04] MEDS ORDERED: FAMOTIDINE 20 MG TABLET PO SCH (21:00)
== END 2023-06-04 13:52 | disposition home or self-care (01) | DRG 208 ==
LOC: EDUNIT# → ED 20:00 → ICU 21:17 → MS2 06-04 08:03
PROVIDERS: ADMIT Internal Medicine; ATTEND Internal Medicine
PROC: 5A1945Z Respiratory Ventilation, 24-96 Consecutive Hours (ICD-10-PCS; principal; 2023-06-02)
DX: J96.01 Acute respiratory failure with hypoxia (principal); G93.41 Metabolic encephalopathy; F17.203 Nicotine dependence unspecified, with withdrawal; F32.A Depression, unspecified; F10.229 Alcohol dependence with intoxication, unspecified; Y90.8 Blood alcohol level of 240 mg/100 ml or more; J96.02 Acute respiratory failure with hypercapnia; Z78.1 Physical restraint status
CPT/HCPCS: 36415; 36600; 51702; 71045; 80048; 80053; 80306; 80307; 80320; 80329; 81003; 82330; 82803; 83690; 83735; 84100; 84132; 84443; 85025; 87150; 94002; 94003; 99291; A9270; J3010; J3411; J7040; 81001; 87086

== ENCOUNTER 2023-06-09 19:20 | Outpatient (CLI) | payer OTHER | END 2023-06-09 19:21 | disposition EMS.NT | LOC: EMS 19:20 | DX: F10.10 Alcohol abuse, uncomplicated (principal) ==

== ENCOUNTER 2023-06-18 20:12 | Outpatient (CLI) | payer OTHER | END 2023-06-18 20:13 | disposition critical access hospital (66) | LOC: EMS 20:12 | DX: R11.2 Nausea with vomiting, unspecified (principal); R03.1 Nonspecific low blood-pressure reading; R00.0 Tachycardia, unspecified; F10.90 Alcohol use, unspecified, uncomplicated | CPT/HCPCS: A0425; A0427 ==

== ENCOUNTER 2023-06-18 20:37 | Emergency (ER) | payer OTHER ==
[2023-06-18] MEDS ORDERED: THIAMINE 100 MG TABLET PO STA (20:39)
[2023-06-18] MEDS ORDERED: SODIUM CHLORIDE 0.9% 1,000 ML IV STA (20:40)
--- NOTE | 2023-06-18 20:42 | ED Physician Documentation ---
History of Present Illness - Stated complaint Stated Complaint: ETOH - History obtained from History obtained from: Patient, EMS - Additonal information Additional information: 37-year-old man with history of alcohol abuse presents with nausea and vomiting after taking Antabuse and then drinking 8 to 12 ounces of 21% alcohol around noon today. Patient also had hypotension at home with systolic blood pressure in the 70s prompting him to call EMS. On EMS arrival he had SBP of 90 and was tachycardic 116 120 responding well to IV fluids and 4 mg IV Zofran. Patient now states that his symptoms have completely resolved. AO x 3, clinically sober. PD PAST MEDICAL HISTORY - Past Medical History Cardiovascular: None Respiratory: None Neuro: None Endocrine/Autoimmune: None GI: None : None Psych: Other Musculoskeletal: None Derm: None - Past Surgical History Past Surgical History: No - Present Medications Home Medications: Ambulatory Orders Medication Instructions Recorded Confirmed Escitalopram [Lexapro] 10 mg PO DAILY 06/03/23 06/03/23 Nicotine Polacrilex [Nicotine 6 mg BC Q1H 06/03/23 06/03/23 Lozenge] traZODone [Desyrel] 50 mg PO DAILY 06/03/23 06/03/23 - Allergies Allergies/Adverse Reactions: Allergies Allergy/AdvReac Type Severity Reaction Status Date / Time No Known Drug Allergies Allergy Verified 06/18/23 20:50 - Social History Does the pt smoke?: No Smoking Status: Former smoker PD ED PE NORMAL - Vitals Vital signs reviewed: Yes - General General: Alert and oriented X 3, No acute distress, Well developed/nourished - HEENT HEENT: Atraumatic, PERRL, EOMI - Neck Neck: Supple, no meningeal sign - Cardiac Cardiac: RRR - Respiratory Respiratory: No respiratory distress, Clear bilaterally - Abdomen Abdomen: Non tender, Non distended - Derm Derm: Normal color, Warm and dry - Neuro Neuro: Alert and oriented X 3 - Psych Psych: Normal mood, Normal affect Results - Vitals Vitals: Vital Signs - 24 hr 06/18/23 20:40 Temperature 36.5 C Heart Rate 91 Respiratory 17 Rate Blood Pressure 109/64 O2 Saturation 100 Oxygen O2 Source Room air PD Medical Decision Making - ED course ED course: 37-year-old man presents with nausea and vomiting and low blood pressure at home after taking Antabuse and then drinking alcohol today. symptoms resolved with symptomatic care by ems. plan to monitor and provide IVF and thiamine. Patient tolerating PO, asymptomatic, with normal vital signs and exam. counseling provided to avoid etoh, especially while taking disulfiram. plan to dc with return precautions to f/u with pcp. Departure - Departure Disposition: 01 Home, Self Care Clinical Impression: Alcohol abuse, Encounter for monitoring antabuse therapy Condition: Stable Instructions: Disulfiram tablets Comments: You were seen in the emergency department for vomiting after drinking alcohol and taking antabuse. Do not drink alcohol again after taking antabuse. Please follow-up with your primary care provider and return to the emergency department if you have any new or worsening symptoms or other concerns.
[2023-06-18 22:56] VITALS: BP 112/80
[2023-06-18 23:05] VITALS: O2SAT 97
== END 2023-06-18 22:59 | disposition home or self-care (01) ==
LOC: EDUNIT# → ED 20:37
DX: F10.10 Alcohol abuse, uncomplicated (principal); Z87.891 Personal history of nicotine dependence; Z79.899 Other long term (current) drug therapy
CPT/HCPCS: 99282; 99283; A9270